=== PATIENT | female | born 1960 | race Caucasian/White ===

== ENCOUNTER 2016-12-12 10:34 | Day surgery (SDC) | payer MEDICAID ==
--- NOTE | 2016-12-12 12:20 | Operative Note ---
Surgeon/Diagnoses Surgeon/Weatherization Administrator(s) Date of procedure: 12/12/16 Surgeon: MD Jeffry Varner Diagnoses Pre-op diagnosis: Anemia Bright red blood per rectum Post-op diagnosis Same as preoperative diagnoses, with the addition of the following: Colon polyps Hemorrhoids Procedure Procedure Procedure: Colonoscopy with polypectomy Indications: SHERRILL NELSON is a 56 year-old Female with a history of anemia and occasional bright red blood per rectum that she attributes to hemorrhoids. Findings: Bowel preparation fairly poor Fairly significant spasticity Moderate tortuosity Moderate hemorrhoidal cushions with no thrombosis or active bleeding Mild inflammation at ileocecal valve RIGHT colon polyp Adjacent transverse colon polyps Large complex polyp at 60 cm (snared) Broad-based pedunculated polyp at 35 cm and adjacent polyps (snared) Large pedunculated polyp at 12 cm (snared) Procedure Description: After informed consent was obtained, the patient was taken to the endoscopy suite. IV sedation ensued after she was transferred to the LEFT lateral decubitus position. Digital rectal exam revealed hemorrhoidal tags/cushions. No thrombosis or bleeding was noted. The colonoscope was placed in position. The entire colon was evaluated. Bowel preparation was fairly poor with large volume irrigation and suctioning used to somewhat improved visualization. Fairly significant spasticity was encountered. Moderate tortuosity was also noted. Mild inflammatory changes around the ileocecal valve were noted and biopsies were obtained. A RIGHT colon polyp was excised with cold biopsy forceps. Adjacent transverse colon polyps were excised with cold biopsy forceps. A large complex polyp at [address] of snare. A broad-based pedunculated polyp at 35 cm and adjacent polyp were excised by way of snare. A large complex pedunculated polyp at [address] was excised by way of snare. No additional mucosal lesions were seen. The colonoscope was carefully removed and the patient was transferred to recovery. EBL (ml): 1 Anesthesia: IV sedation with 11 mg of Versed and 200 g of fentanyl Complications: No immediate Specimens: Biopsy of ileocecal valve RIGHT colon polyp Adjacent transverse colon polyps Large complex polyp at 60 cm (snared) Broad-based pedunculated polyp at 35 cm and adjacent polyp (snared) Large complex pedunculated polyp at 12 cm (snared) Disposition Disposition: Stable to recovery from where she will be discharged home. She will follow-up in one week. Repeat colonoscopy is pending pathology, but will likely be between 1- 2 years secondary to size/number/nature of polyps, fairly poor bowel preparation , and tortuosity/spasticity. Further evaluation with regard to anemia will be ongoing. at [id number]
[2016-12-12 13:28] VITALS: BP 133/64
== END 2016-12-12 13:15 | disposition home or self-care (01) ==
LOC: SDC 10:34
PROVIDERS: Surgery
PROC: 0DBL8ZX Excision of Transverse Colon, Via Natural or Artificial Opening Endoscopic, Diagnostic (ICD-10-PCS; 2016-12-12)
PROC: 0DBE8ZX Excision of Large Intestine, Via Natural or Artificial Opening Endoscopic, Diagnostic (ICD-10-PCS; 2016-12-12)
PROC: 0DBF8ZX Excision of Right Large Intestine, Via Natural or Artificial Opening Endoscopic, Diagnostic (ICD-10-PCS; principal; 2016-12-12 11:00)
DX: K62.5 Hemorrhage of anus and rectum (principal); K64.9 Unspecified hemorrhoids; K63.5 Polyp of colon